=== PATIENT | male | born 1965 | race African-American/Black ===

== ENCOUNTER 2016-12-19 14:36 | Emergency (ER) | payer MEDICAID ==
[2016-12-19 15:29] LABS: BASOPHILS 0.4 % (0-2); EOSINOPHILS 0.5 % (0-7); HEMATOCRIT 39.4 % (42.0-54.0); HEMOGLOBIN 13.9 g/dL (13.5-17.5); IMMATURE GRANULOCYTES 0.1 % (0-5); LYMPHOCYTES 34.7 % (15-50); MCH 31.5 pg (26.0-34.0); MCHC 35.3 g/dL (31.0-37.0); MCV 89.3 fL (80.0-100.0); MEAN PLATELET VOLUME 9.8 fL (7.4-10.4); MONOCYTES 10.6 % (2-11); NEUTROPHILS 53.7 % (40-80); PLATELET COUNT 97 10x3/uL (130-400); RBC 4.41 10x6/uL (4.20-6.10); RDW 16.1 % (11.5-14.5); WBC 7.4 10x3/uL (4.8-10.8)
[2016-12-19 15:46] LABS: ALBUMIN 3.7 g/dL (3.4-5.0); ALKALINE PHOSPHATASE 319 U/L (46-116); ALT (SGPT) 57 U/L (10-68); AMYLASE - SERUM 176 U/L (25-115); BILIRUBIN - TOTAL 1.48 mg/dL (0.2-1.3); CALC OSMOLALITY 278 mosm/kg (275-300); CALCIUM 8.6 mg/dL (8.5-10.1); CARBON DIOXIDE 23.9 mmol/L (21.0-32.0); CHLORIDE - SERUM 99 mmol/L (98-107); CREATININE - SERUM 0.7 mg/dL (0.6-1.3); GLUCOSE 103 mg/dL (74-106); LIPASE 334 U/L (73-393); POTASSIUM - SERUM 3.8 mmol/L (3.5-5.1); PROTEIN - SERUM 8.9 g/dL (6.4-8.2); SODIUM 141 mmol/L (136-145); UREA NITROGEN 6 mg/dL (7-18); eGFR NON AFRICAN AMERICAN > 90 mL/min (90-120)
[2016-12-19 16:07] LABS: APPEARANCE CLOUDY (CLEAR); COLOR AMBER (YELLOW)
[2016-12-19 16:08] LABS: BILIRUBIN 3+ (NEGATIVE); GLUCOSE NEGATIVE (NEGATIVE); KETONE MODERATE mg/dL (NEGATIVE); LEUKOCYTE ESTERASE NEGATIVE (NEGATIVE); NITRITE NEGATIVE (NEGATIVE); PROTEIN TRACE mg/dL (NEGATIVE); SPECIFIC GRAVITY 1.015 (1.005-1.020)
[2016-12-19 16:14] LABS: GRANULAR CAST RARE /lpf (NONE SEEN)
[2016-12-19 16:15] LABS: EPITHELIAL CELLS 0-5 /hpf (0-5)
[2016-12-19 16:43] LABS: PLATELET ESTIMATE DECREASED
== END 2016-12-19 19:25 | disposition home or self-care (01) ==
LOC: D.ER 14:36
PROVIDERS: Emergency Medicine
DX: R10.9 Unspecified abdominal pain (principal); R42 Dizziness and giddiness; R51 Headache; R53.83 Other fatigue; F41.9 Anxiety disorder, unspecified; R45.1 Restlessness and agitation